=== PATIENT | male | born 1960 | race Hispanic/Latino ===

== ENCOUNTER 2016-12-25 09:22 | Emergency (ER) | payer SELFPAY ==
[2016-12-25 09:35] VITALS: BP 152/105
--- NOTE | 2016-12-25 11:30 | XRay Report ---
LEFT KNEE, 3 views: History: Left knee pain. A large joint effusion extends to the suprapatellar bursa. There is normal bone mineralization. No acute osseous findings or significant joint pathology. IMPRESSION: Large joint effusion. No bony abnormality detected. If internal derangement is suspected, MRI left knee without contrast is recommended.
[2016-12-25] MEDS ORDERED: TORADOL IM ONE (11:41)
[2016-12-25] MEDS ORDERED: NORCO 10/325 PO ONE (11:42)
[2016-12-25] MEDS ORDERED: XYLOCAINE 1% 20 mL INFILTRATI ONE (11:51)
--- NOTE | 2016-12-25 12:08 | Emergency Department Report ---
ED Extremity Problem HPI - General Chief complaint: Extremity Injury, Lower Stated complaint: LT KNEE PAIN /SWOLLEN Time Seen by Provider: 12/25/16 11:35 Source: patient Mode of arrival: Wheelchair Limitations: No Limitations - History of Present Illness Initial comments: Patient is a 56-year-old male who presents to ED with complaints of left knee pain. Patient reports that he was mowing his lawn yesterday and stepped in a hole. Patient reports that he heard a crack or popping sensation in the left knee. Reports of swelling and tenderness to the area ever since. Denies any other injuries or symptoms. States there is a lot of swelling in the left knee now. Complaint: extremity pain -: Sudden Location: left, lower extremity -: Yes arthralgia Severity scale (0 -10): 7 Quality: aching Consistency: constant Improves with: rest Worsens with: weight bearing, walking Associated Symptoms: denies other symptoms - Related Data Previous Rx's Medication Instructions Recorded Last Taken Type Acetaminophen with Codeine 1 each PO Q8H #15 tablet 12/25/16 Unknown Rx [Acetaminophen-Codeine #4 TAB] Diclofenac [Justin Shultz] 75 mg PO TID #21 tablet 12/25/16 Unknown Rx Allergies Allergy/AdvReac Type Severity Reaction Status Date / Time No Known Allergies Allergy Unverified 12/25/16 09:32 ED Review of Systems ROS: Stated complaint: LT KNEE PAIN /SWOLLEN Other details as noted in HPI Constitutional: denies: chills, fever Respiratory: denies: cough, shortness of breath, wheezing Cardiovascular: denies: chest pain, palpitations Musculoskeletal: as per HPI, joint swelling (left knee), arthralgia (left knee) . denies: back pain Neurological: denies: headache, weakness, paresthesias Psychiatric: denies: anxiety, depression ED Past Medical Hx - Past Medical History Previous Medical History?: No - Surgical History Past Surgical History?: No - Social History Smoking Status: Current Every Day Smoker Substance Use Type: Alcohol, Non Opiate Pain - Medications Home Medications: Home Medications Medication Instructions Recorded Confirmed Last Taken Type Acetaminophen with Codeine 1 each PO Q8H #15 tablet 12/25/16 Unknown Rx [Acetaminophen-Codeine #4 TAB] Diclofenac [Justin Shultz] 75 mg PO TID #21 tablet 12/25/16 Unknown Rx ED Physical Exam - General Limitations: No Limitations General appearance: alert, in no apparent distress - Head Head exam: Present: atraumatic, normocephalic - Eye Eye exam: Present: normal appearance - Respiratory Respiratory exam: Present: normal lung sounds bilaterally. Absent: respiratory distress - Cardiovascular Cardiovascular Exam: Present: regular rate, normal rhythm. Absent: systolic murmur, diastolic murmur, rubs, gallop - Expanded Lower Extremity Exam Left Knee exam: Present: tenderness, swelling, effusion, pain/laxity with valgus. Absent: full ROM (decreased rom), abrasion, laceration, ecchymosis, deformity, crepidus, dislocation, erythema, pain w/ pronation/supination, posterior draw sign, pain/laxity with varus, full knee extension Neuro vascular tendon exam: Present: no vascular compromise. Absent: pulse deficit, abnormal cap refill, motor deficit, sensory deficit, tendon deficit, extremity cold to touch, pallor - Neurological Exam Neurological exam: Present: alert, oriented X3 - Psychiatric Psychiatric exam: Present: normal affect, normal mood ED Course Vital Signs 12/25/16 12/25/16 12/25/16 09:32 11:50 11:51 Temperature 98 F Pulse Rate 83 Respiratory 18 20 20 Rate Blood Pressure 152/105 O2 Sat by Pulse 98 Oximetry ED Medical Decision Making - Medical Decision Making Patient is resting comfortably in the ED room. Ordered Toradol and hydrocodone for pain management. Offered aspiration of the joint effusion although patient denied. States would like to follow up with mapping specialist. We'll give me immobilizer at this time and advised to use crutches and nonweightbearing until he sees orthopedist and has an MRI done. - Differential Diagnosis left knee pain, left knee strain, left knee sprain, meniscus tear Critical care attestation.: If time is entered above; I have spent that time in minutes in the direct care of this critically ill patient, excluding procedure time. ED Disposition Clinical Impression: Left lateral knee pain Disposition: DC- TO HOME OR SELFCARE Is pt being admited?: No Does the pt Need Aspirin: No Condition: Stable Prescriptions: Acetaminophen with Codeine [Acetaminophen-Codeine #4 TAB] 1 each PO Q8H #15 tablet Rubi Shultz [Justin Shultz] 75 mg PO TID #21 tablet Referrals: JORY BAJWA MD [Staff Physician] - 3-5 Days Time of Disposition: 12:08
== END 2016-12-25 12:22 | disposition home or self-care (01) ==
LOC: ED 09:22
DX: M25.562 Pain in left knee (principal); M79.89 Other specified soft tissue disorders; F17.210 Nicotine dependence, cigarettes, uncomplicated
CPT/HCPCS: 73562; 96372; 99283; J1885

== ENCOUNTER 2020-07-16 16:56 | Emergency (ER) | payer SELFPAY ==
[2020-07-16] MEDS ORDERED: KETOROLAC 30 MG/1 ML INJ IV ONE (17:23)
[2020-07-16] MEDS ORDERED: SODIUM CHLORIDE 0.9% 1000 ML 1,000 ML IV ONE (17:23)
--- NOTE | 2020-07-16 17:29 | Emergency Department Report ---
ED Abdominal Pain HPI - General Chief Complaint: Abdominal Pain Stated Complaint: ABD PAIN Time Seen by Provider: 07/16/20 16:59 Source: patient Mode of arrival: Ambulatory Limitations: No Limitations - History of Present Illness Initial Comments: 60-year-old male, no past medical history, presents to ED with complaint of abdominal pain. Patient states pain initially began around 11 AM located in the right lower back area. 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 Patient states pain has moved around to the right lower quadrant at this time. He reports associated nausea, no vomiting. Denies hematuria, dysuria, fever. Patient states he has had blood in his stool, intermittently over the last 6 months, however, he has not had any bloody stools today. States streaks of blood blood is usually mixed in with stool. BP elevated at triage. Patient denies any previous history of hypertension, although, patient states he has not seen a doctor in several years. Triage note states patient laid on the floor in triage complaining of severe abdominal pain. Patient currently tells me he is feeling much better, asks me to lower the head of the stretcher and states, "I'm going to lay here and try to get some sleep real quick." MD Complaint: flank pain -: This morning Location: R flank Radiation: RLQ Migration to: RLQ Severity: moderate Consistency: intermittent Improves With: nothing Worsens With: nothing Associated Symptoms: nausea. denies: vomiting, diarrhea, fever, hematuria - Related Data Previous Rx's Medication Instructions Recorded Last Taken Type Acetaminophen with Codeine 1 each PO Q8H #15 tablet 12/25/16 Unknown Rx [Acetaminophen-Codeine #4 TAB] Diclofenac [Justin Shultz] 75 mg PO TID #21 tablet 12/25/16 Unknown Rx HYDROcodone/APAP 5-325 [[place] 1 each PO Q6HR PRN #10 tablet 07/16/20 Unknown Rx 5/325] Tamsulosin [Flomax] 0.4 mg PO QDAY #5 cap 07/16/20 Unknown Rx hydroCHLOROthiazide [HCTZ] 25 mg PO QDAY #30 tablet 07/16/20 Unknown Rx Allergies Allergy/AdvReac Type Severity Reaction Status Date / Time No Known Allergies Allergy Unverified 12/25/16 09:32 ED Review of Systems ROS: Stated complaint: ABD PAIN Other details as noted in HPI Comment: All other systems reviewed and negative Constitutional: denies: chills, fever Gastrointestinal: abdominal pain, nausea, hematochezia. denies: vomiting ED Past Medical Hx - Past Medical History Previous Medical History?: No - Surgical History Past Surgical History?: No - Social History Smoking Status: Current Every Day Smoker Substance Use Type: None - Medications Home Medications: Home Medications Medication Instructions Recorded Confirmed Last Taken Type Acetaminophen with Codeine 1 each PO Q8H #15 tablet 12/25/16 Unknown Rx [Acetaminophen-Codeine #4 TAB] Diclofenac Dr [Voltaren Dr] 75 mg PO TID #21 tablet 12/25/16 Unknown Rx HYDROcodone/APAP 5-325 [[place] 1 each PO Q6HR PRN #10 tablet 07/16/20 Unknown Rx 5/325] Tamsulosin [Flomax] 0.4 mg PO QDAY #5 cap 07/16/20 Unknown Rx hydroCHLOROthiazide [HCTZ] 25 mg PO QDAY #30 tablet 07/16/20 Unknown Rx ED Physical Exam - General Limitations: No Limitations General appearance: alert, in no apparent distress - Head Head exam: Present: atraumatic, normocephalic - Eye Eye exam: Present: normal appearance, EOMI - ENT ENT exam: Present: mucous membranes moist - Neck Neck exam: Present: normal inspection - Respiratory Respiratory exam: Present: normal lung sounds bilaterally. Absent: respiratory distress - Cardiovascular Cardiovascular Exam: Present: regular rate, normal rhythm - GI/Abdominal GI/Abdominal exam: Present: soft. Absent: distended, tenderness - Extremities Exam Extremities exam: Present: normal inspection - Back Exam Back exam: Absent: CVA tenderness (R), CVA tenderness (L) - Neurological Exam Neurological exam: Present: alert, oriented X3 - Psychiatric Psychiatric exam: Present: normal affect, normal mood - Skin Skin exam: Present: warm, dry, intact, normal color ED Course Vital Signs 07/16/20 07/16/20 07/16/20 17:01 17:38 18:12 Temperature 97.5 F L Pulse Rate 60 63 60 Respiratory 20 13 22 Rate Blood Pressure 196/103 Blood Pressure 208/108 186/102 [Left] O2 Sat by Pulse 98 97 98 Oximetry 07/16/20 20:55 Temperature 98.2 F Pulse Rate 76 Respiratory 15 Rate Blood Pressure Blood Pressure 191/115 [Left] O2 Sat by Pulse 92 Oximetry - Reevaluation(s) Reevaluation #1: 07/16/20 18:44 Pt asleep on stretcher. Reports pain has resolved. ED Medical Decision Making - Lab Data Result diagrams: 07/16/20 17:23 07/16/20 17:23 Critical care attestation.: If time is entered above; I have spent that time in minutes in the direct care of this critically ill patient, excluding procedure time. ED Disposition Clinical Impression: Kidney stone on right side, Uncontrolled hypertension Disposition: DC- TO HOME OR SELFCARE Is pt being admited?: No Condition: Stable Instructions: Renal Colic, [id number], Hypertension, Adult, Hypertension (ED) Prescriptions: Tamsulosin [Flomax] 0.4 mg PO QDAY #5 cap hydroCHLOROthiazide [HCTZ] 25 mg PO QDAY #30 tablet HYDROcodone/APAP 5-325 [[place] 5/325] 1 each PO Q6HR PRN #10 tablet PRN Reason: Pain Referrals: TAYLOR SALAS MD [Staff Physician] - 3-5 Days
[2020-07-16 17:40] LABS: Basophils # (Auto) 0.1 K/mm3 (0.0-0.1); Basophils % (Auto) 0.6 % (0.0-1.8); Eosinophils # (Auto) 0.2 K/mm3 (0.0-0.4); Eosinophils % (Auto) 1.1 % (0.0-4.3); Hemoglobin 13.9 gm/dl (11.8-15.2); Lymphocytes # (Auto) 1.3 K/mm3 (1.2-5.4); Lymphocytes % (Auto) 9.1 % (13.4-35.0); Mean Corpuscular HGB Conc 34 % (32-34); Mean Corpuscular Volume 92 fl (84-94); Monocytes # (Auto) 0.7 K/mm3 (0.0-0.8); Monocytes % (Auto) 4.7 % (0.0-7.3); Platelet Count 232 K/mm3 (140-440); Red Blood Count 4.44 M/mm3 (3.65-5.03); Red Cell Distribution Width 12.9 % (13.2-15.2)
[2020-07-16 17:54] LABS: INR 1.02 (0.87-1.13)
[2020-07-16 17:55] LABS: Partial Thromboplastin Time 28.7 Sec. (24.2-36.6)
[2020-07-16 18:08] LABS: Albumin 4.1 g/dL (3.9-5); Calcium 8.9 mg/dL (8.4-10.2)
--- NOTE | 2020-07-16 18:45 | Cat Scan Report ---
CT ABDOMEN AND PELVIS WITHOUT CONTRAST INDICATION: Right-sided flank pain TECHNICAL: Multiple axial CT images of the abdomen and pelvis were acquired without intravenous contr ast. Sagittal and coronal reformats were obtained. All CTs at this facility utilize dose reduction techniques including automated exposure control, iterative reconstruction and weight based dosing whe n appropriate to reduce patient radiation dose to as low as reasonable achievable. COMPARISON: No prior abdominal imaging is available for comparison. FINDINGS: Limited imaging of the bilateral lung bases demonstrates no acute abnormality. ABDOMEN: The liver, gallbladder, spleen, pancreas, bilateral adrenal glands and left kidney show no evidence o f acute abnormality. There is an obstructing 5 mm stone within the proximal right ureter with mild to moderate associated right-sided hydronephrosis and perinephric stranding. The abdominal aorta is normal in caliber with s cattered atherosclerotic calcifications. There is no evidence of bowel obstruction. The appendix is v isualized and appears normal. PELVIS: No free fluid is seen within the pelvis. The urinary bladder appears normal. The prostate gland appea rs mildly enlarged. BONES AND SOFT TISSUES: No significant abnormality. IMPRESSION: 1. Obstructing 5 mm stone within the proximal right ureter causing mild to moderate hydronephrosis an d perinephric stranding. Signer Name: Sarika Armstrong MD Signed: 07/16/2020 6:41 PM Workstation Name: [id number]
[2020-07-16] MEDS ORDERED: ONDANSETRON 4 MG/2 ML INJ IV ONE (19:31)
[2020-07-16 19:51] LABS: Bilirubin,Urine NEG (Negative); Blood,Urine SM (Negative); Color,Urine Yellow (Yellow); Mucus,Urine FEW /HPF; Protein,Urine <15 mg/dL mg/dL (Negative); Urobilinogen,Urine < 2.0 mg/dL (<2.0)
[2020-07-16 21:00] VITALS: BP 191/115
== END 2020-07-16 20:55 | disposition home or self-care (01) ==
LOC: ED 16:56
DX: N20.0 Calculus of kidney (principal); I10 Essential (primary) hypertension; F17.200 Nicotine dependence, unspecified, uncomplicated; Z79.899 Other long term (current) drug therapy
CPT/HCPCS: 36415; 74176; 80053; 81001; 83690; 85025; 85610; 85730; 96361; 96374; 96375; 99284; J1885; J2405; J7030

== ENCOUNTER 2020-08-26 04:32 | Emergency (ER) | payer SELFPAY ==
[2020-08-26 05:12] VITALS: BP 188/104
[2020-08-26 05:59] LABS: Basophils # (Auto) 0.1 K/mm3 (0.0-0.1); Basophils % (Auto) 0.4 % (0.0-1.8); Eosinophils # (Auto) 0.4 K/mm3 (0.0-0.4); Eosinophils % (Auto) 2.5 % (0.0-4.3); Hematocrit 43.4 % (35.5-45.6); Hemoglobin 14.6 gm/dl (11.8-15.2); Lymphocytes # (Auto) 1.5 K/mm3 (1.2-5.4); Lymphocytes % (Auto) 9.6 % (13.4-35.0); Mean Corpuscular HGB Conc 34 % (32-34); Mean Corpuscular Volume 92 fl (84-94); Monocytes # (Auto) 0.8 K/mm3 (0.0-0.8); Monocytes % (Auto) 5.1 % (0.0-7.3); Platelet Count 288 K/mm3 (140-440); Red Blood Count 4.75 M/mm3 (3.65-5.03); Red Cell Distribution Width 13.2 % (13.2-15.2)
[2020-08-26 06:07] LABS: Albumin 3.9 g/dL (3.9-5); Calcium 9.4 mg/dL (8.4-10.2)
[2020-08-26] MEDS ORDERED: SODIUM CHLORIDE 0.9% 1000 ML 1,000 ML IV ONE ×2 (06:09→07:44)
[2020-08-26] MEDS ORDERED: KETOROLAC 30 MG/1 ML INJ IV ONE (06:11)
[2020-08-26] MEDS ORDERED: ONDANSETRON 4 MG/2 ML INJ IV ONE (06:11)
[2020-08-26 06:34] LABS: Bilirubin,Urine NEG (Negative); Blood,Urine LG (Negative); Color,Urine Amber (Yellow); Mucus,Urine 3+ /HPF; RBC,Urine < 1.0 /HPF (0.0-6.0); Urobilinogen,Urine < 2.0 mg/dL (<2.0)
--- NOTE | 2020-08-26 07:25 | Cat Scan Report ---
CT ABDOMEN AND PELVIS WITHOUT CONTRAST HISTORY: r/o renal stone obstruction /pyelonephritis. COMPARISON: CT abdomen/pelvis from 07/16/2020 TECHNIQUE: CT images of the abdomen and pelvis were obtained without administration of intravenous co ntrast. All CT scans at this location are performed using CT dose reduction for ALARA by means of au tomated exposure control. FINDINGS: Lungs/bones: There is minimal atelectasis in the lung bases. Degenerative changes are present in the spine and pelvis with nothing acute. Abdomen/pelvis: Right renal stone disease has progressed distally to the distal one third of the ure ter and measures 9 mm in length by 5 mm in maximal width. There is moderate right-sided hydronephrosi s and inflammatory stranding about the right ureter and kidney. The left kidney is unremarkable. The liver, gallbladder, spleen, pancreas, adrenals, and proximal GI tract appear unremarkable. The urinary bladder is unremarkable. Prostate is normal. No pelvic free fluid or acute colonic abnorm ality identified. IMPRESSION: 1. Interval distal transit of the large right ureteral stone as above with moderate hydronephrosis an d inflammatory changes. Polynephritis cannot be excluded on a limited noncontrast examination. Signer Name: Murali Licona MD Signed: 08/26/2020 7:21 AM Workstation Name: [id number]
--- NOTE | 2020-08-26 07:40 | Emergency Department Report ---
ED Abdominal Pain HPI - General Chief Complaint: Abdominal Pain Stated Complaint: ABD PAIN Time Seen by Provider: 08/26/20 06:47 Source: patient Mode of arrival: Ambulatory Limitations: No Limitations - History of Present Illness Initial Comments: 60-year-old male presents to the emergency room reporting lower abdominal pain at 7 out of 10 on a pain scale. Patient admits to decreased urine output and a weak stream. Patient reports he was here last month on 07/16/2020 and was told he had a kidney stone in his right kidney. Patient states that he completed the medication of Flomax and water pill. Patient states at that time it had improved he never followed up with a urologist. Review of patient's chart was noted that he had a 5 mm obstructing stone in the right proximal ureter with mild to moderate hydronephrosis. MD Complaint: abdominal pain -: During the night Location: suprapubic Severity scale (0 -10): 4 Quality: stabbing, sharp Consistency: intermittent Improves With: nothing Worsens With: nothing Associated Symptoms: nausea, vomiting, other (Weak stream). denies: constipation, dysuria, hematemesis - Related Data Previous Rx's Medication Instructions Recorded Last Taken Type Acetaminophen with Codeine 1 each PO Q8H #15 tablet 12/25/16 Unknown Rx [Acetaminophen-Codeine #4 TAB] Diclofenac [Justin Shultz] 75 mg PO TID #21 tablet 12/25/16 Unknown Rx HYDROcodone/APAP 5-325 [[place] 1 each PO Q6HR PRN #10 tablet 07/16/20 Unknown Rx 5/325] hydroCHLOROthiazide [HCTZ] 25 mg PO QDAY #30 tablet 07/16/20 Unknown Rx Tamsulosin [Flomax] 0.4 mg PO QDAY #5 cap 08/26/20 Unknown Rx amLODIPine 5 mg PO DAILY #30 tab 08/26/20 Unknown Rx Allergies Allergy/AdvReac Type Severity Reaction Status Date / Time codeine Allergy Hives Verified 08/26/20 05:08 ED Review of Systems ROS: Stated complaint: ABD PAIN Other details as noted in HPI Comment: All other systems reviewed and negative ED Past Medical Hx - Past Medical History Previous Medical History?: No - Surgical History Past Surgical History?: No - Social History Smoking Status: Current Every Day Smoker Substance Use Type: None - Medications Home Medications: Home Medications Medication Instructions Recorded Confirmed Last Taken Type Acetaminophen with Codeine 1 each PO Q8H #15 tablet 12/25/16 Unknown Rx [Acetaminophen-Codeine #4 TAB] Rubi Shultz [Justin Shultz] 75 mg PO TID #21 tablet 12/25/16 Unknown Rx HYDROcodone/APAP 5-325 [[place] 1 each PO Q6HR PRN #10 tablet 07/16/20 Unknown Rx 5/325] hydroCHLOROthiazide [HCTZ] 25 mg PO QDAY #30 tablet 07/16/20 Unknown Rx Tamsulosin [Flomax] 0.4 mg PO QDAY #5 cap 08/26/20 Unknown Rx amLODIPine 5 mg PO DAILY #30 tab 08/26/20 Unknown Rx ED Physical Exam - General Limitations: No Limitations General appearance: alert, in no apparent distress - Head Head exam: Present: atraumatic, normocephalic - Eye Eye exam: Present: normal appearance - ENT ENT exam: Present: mucous membranes moist - Neck Neck exam: Present: normal inspection - Respiratory Respiratory exam: Present: normal lung sounds bilaterally. Absent: respiratory distress - Cardiovascular Cardiovascular Exam: Present: regular rate, normal rhythm. Absent: systolic murmur, diastolic murmur, rubs, gallop - GI/Abdominal GI/Abdominal exam: Present: soft, normal bowel sounds - Rectal Rectal exam: Present: deferred - Extremities Exam Extremities exam: Present: normal inspection - Back Exam Back exam: Present: normal inspection - Neurological Exam Neurological exam: Present: alert, oriented X3 - Psychiatric Psychiatric exam: Present: normal affect, normal mood - Skin Skin exam: Present: warm, dry, intact, normal color. Absent: rash ED Course Vital Signs 08/26/20 05:08 Temperature 97.9 F Pulse Rate 67 Respiratory 16 Rate Blood Pressure 188/104 O2 Sat by Pulse 96 Oximetry ED Medical Decision Making - Lab Data Result diagrams: 08/26/20 05:14 08/26/20 05:14 - Radiology Data Radiology results: report reviewed [facility] [address] [place] [address] Cat Scan Report Signed Patient: ELIS RUIZ MR#: [id number] : 1960 Acct:[id number] Age/Sex: 60 / M ADM Date: 08/26/20 Loc: ED Attending Dr: Ordering Physician: TAMIKO CUNNINGHAM NP Date of Service: 08/26/20 Procedure(s): CT abdomen pelvis wo [facility] Accession Number(s): [id number] cc: TAMIKO CUNNINGHAM NP CT ABDOMEN AND PELVIS WITHOUT CONTRAST HISTORY: r/o renal stone obstruction /pyelonephritis. COMPARISON: CT abdomen/pelvis from 07/16/2020 TECHNIQUE: CT images of the abdomen and pelvis were obtained without administration of intravenous contrast. All CT scans at this location are performed using CT dose reduction for ALARA by means of automated exposure control. FINDINGS: Lungs/bones: There is minimal atelectasis in the lung bases. Degenerative ch anges are present in the spine and pelvis with nothing acute. Abdomen/pelvis: Right renal stone disease has progressed distally to the distal one third of the ureter and measures 9 mm in length by 5 mm in maximal width. There is moderate right-sided hydronephrosis and inflammatory stranding about the right ureter and kidney. The left kidney is unremarkable. The liver, gallbladder, spleen, pancreas, adrenals, and proximal GI tract appear unremarkable. The urinary bladder is unremarkable. Prostate is normal. No pelvic free fluid or acute colonic abnormality identified. IMPRESSION: 1. Interval distal transit of the large right ureteral stone as above with moderate hydronephrosis and inflammatory changes. Polynephritis cannot be excluded on a limited noncontrast examination. Signer Name: Murali Licona MD Signed: 08/26/2020 7:21 AM Workstation Name: [id number] Transcribed By: JOSE Dictated By: Murali Licona MD Electronically Authenticated By: Murali Licona MD Signed Date/Time: 08/26/20720 DD/ 7 TD/TT: Print Cancel - Medical Decision Making 60-year-old male presents to the emergency room reporting lower abdominal pain at 7 out of 10 on a pain scale. Patient admits to decreased urine output and a weak stream. Patient reports he was here last month on and was told he had a kidney stone in his right kidney. Patient states that he completed the medication of Flomax and water pill. Patient states at that time it had improved he never followed up with a urologist. Review of patient's chart was noted that he had a 5 mm obstructing stone in the right proximal ureter with mild to moderate hydronephrosis. Initial orders CBC CMP urinalysis CT without contrast and Toradol. When I came to evaluate patient is lying in the bed comfortable with stable vital signs no acute distress reports that his pain has improved and its 2 out of 10. Patient was waiting for CT to come. Fluids were running. Review of patient's CT scan today shows he has a 9 mm x 5 mm in width obstructing stone is at the right two thirds of the uterus. This shows moderate hydronephrosis. Urinalysis shows large amount of blood. Worsening of his creatinine from 1.4 now to 1.6. Patient was initiated on another liter of fluids. Spoke with ER attending Dr. Shukla. He recommends patient to be placed back on Flomax increase his fluid intake and referral to urology. I will place patient on amlodipine for elevated blood pressure. Critical care attestation.: If time is entered above; I have spent that time in minutes in the direct care of this critically ill patient, excluding procedure time. ED Disposition Clinical Impression: Kidney stone on right side, Hydronephrosis concurrent with and due to calculi of kidney and ureter Hypertension Qualifiers: Hypertension type: unspecified Qualified Code(s): I10 - Essential (primary) hypertension Disposition: DC- TO HOME OR SELFCARE Is pt being admited?: No Does the pt Need Aspirin: No Condition: Stable Instructions: Hypertension (ED), Kidney Stones, [id number], Hypertension, Adult, [id number] Additional Instructions: Tylenol for pain management. Increase your fluid intake advance your diet as tolerated. It is very important that you follow-up with a urologist if not you are increasing your chances of worsening your kidney function. Is important that you take your blood pressure medication and to follow-up with a primary care provider. I am only able to give you 30 days worth of blood pressure medication which means it is very important to follow-up with a primary care provider. As this medication will most likely need to continue. Prescriptions: amLODIPine 5 mg PO DAILY #30 tab Tamsulosin [Flomax] 0.4 mg PO QDAY #5 cap Referrals: BERRY ANTUNEZ MD [Primary Care Provider] - 3-5 Days TAYLOR SALAS MD [Staff Physician] - 3-5 Days FIONA CORNELL MD [Staff Physician] - 3-5 Days Forms: Work/School Release Form(ED)
== END 2020-08-26 10:35 | disposition home or self-care (01) ==
LOC: ED 04:32
DX: N13.39 Other hydronephrosis (principal); N20.2 Calculus of kidney with calculus of ureter; I10 Essential (primary) hypertension; F17.200 Nicotine dependence, unspecified, uncomplicated; F12.10 Cannabis abuse, uncomplicated
CPT/HCPCS: 36415; 74176; 80053; 81001; 85025; 96361; 96374; 96375; 99284; J1885; J2405; J7030